=== PATIENT | male | born 1965 | race Caucasian/White ===

== ENCOUNTER 2018-02-10 18:04 | Emergency (ER) | payer MEDICAID ==
[~2018-02-10] VITALS: Ht 177.8 cm; Wt 66.3 kg
[2018-02-10] MEDS ORDERED: THIAMINE 100MG TABLET PO ONE (18:30)
[2018-02-10 18:41] LABS: BASOPHILS % (AUTO) 0 % (0-1); EOSINOPHILS # (AUTO) 0.03 x10^3/uL (0-0.4); EOSINOPHILS % (AUTO) 0 % (1-7); LYMPHOCYTES # (AUTO) 1.85 x10^3/uL (1-3.4); LYMPHOCYTES % (AUTO) 23 % (22-44); MD NO; MEAN CORPUSCULAR HEMOGLOBIN 33.6 pg (27.5-34.5); MEAN CORPUSCULAR HGB CONC 34.5 g/dL (33.2-36.2); MEAN CORPUSCULAR VOLUME 97.4 fL (81-97); MEAN PLATELET VOLUME 7.6 fL (7.4-10.4); MONOCYTES # (AUTO) 0.48 x10^3/uL (0.2-0.8); MONOCYTES % (AUTO) 6 % (2-9); NEUTROPHILS # (AUTO) 5.85 x10^3/uL (1.8-6.8); NEUTROPHILS % (AUTO) 71 % (42-75); PLATELET COUNT 306 x10^3/uL (130-400); RED CELL DISTRIBUTION WIDTH 15.2 % (9.4-14.8)
[2018-02-10 18:51] LABS: ALANINE AMINOTRANSFERASE 35 U/L (12-78); ALBUMIN 4.6 g/dL (3.4-5.0); ANION GAP 11 mmol/L (5-15); CALCIUM 8.7 mg/dL (8.5-10.1); CHLORIDE 100 mmol/L (98-107); CREATININE 1.16 mg/dL (0.7-1.3)
[2018-02-10 18:56] LABS: ALKALINE PHOSPHATASE 89 U/L (45-117); BILIRUBIN,TOTAL 1.2 mg/dL (0.2-1.0); TOTAL PROTEIN 8.6 g/dL (6.4-8.2)
[2018-02-10] MEDS ORDERED: ZIPRASIDONE 20 MG INJ IM ONE ×2 (19:00→19:17)
[2018-02-10] MEDS ORDERED: DIAZEPAM 5 MG TABLET PO ONE (19:00)
[2018-02-10] MEDS ORDERED: THIAMINE 100MG TABLET ONE (19:17)
[2018-02-10] MEDS ORDERED: DIAZEPAM 5 MG TABLET ONE (19:17)
[2018-02-11 00:50] VITALS: BP 116/55
== END 2018-02-11 00:52 | disposition home or self-care (01) ==
LOC: ED 23:59
DX: F10.220 Alcohol dependence with intoxication, uncomplicated (principal); E11.9 Type 2 diabetes mellitus without complications; F32.9 Major depressive disorder, single episode, unspecified; Z85.51 Personal history of malignant neoplasm of bladder
CPT/HCPCS: 36415; 80053; 80307; 85025; 96372; 99284; J3486

== ENCOUNTER 2018-10-22 19:07 | Emergency (ER) | payer MEDICAID ==
[~2018-10-22] VITALS: Ht 172.7 cm; Wt 70.0 kg
[2018-10-22] MEDS ORDERED: LORazepam 2 MG/ML, 1ML IM STA (19:15)
[2018-10-22] MEDS ORDERED: LORazepam 2 MG/ML, 1ML IVPush ONE (19:30)
[2018-10-22] MEDS ORDERED: THIAMINE 100 MG in SODIUM CHLORIDE 0.9% 50 ML IVPB ONE (19:30)
[2018-10-22] MEDS ORDERED: LIDOCAINE 2%,20 ML JEL.PF.APP MM ONE (19:30)
[2018-10-22] MEDS ORDERED: THIAMINE 100 MG/ML, 2ML ONE (19:32)
[2018-10-22] MEDS ORDERED: LORazepam 2 MG/ML, 1ML ONE (19:32)
[2018-10-22 19:34] LABS: BASOPHILS # (AUTO) 0.01 x10^3/uL (0-0.1); BASOPHILS % (AUTO) 0 % (0-1); EOSINOPHILS # (AUTO) 0.01 x10^3/uL (0-0.4); EOSINOPHILS % (AUTO) 0 % (1-7); LYMPHOCYTES # (AUTO) 0.67 x10^3/uL (1-3.4); LYMPHOCYTES % (AUTO) 5 % (22-44); MD NO; MEAN CORPUSCULAR HGB CONC 33.6 g/dL (33.2-36.2); MEAN PLATELET VOLUME 7.6 fL (7.4-10.4); MONOCYTES # (AUTO) 0.36 x10^3/uL (0.2-0.8); MONOCYTES % (AUTO) 3 % (2-9); NEUTROPHILS % (AUTO) 92 % (42-75); PLATELET COUNT 336 x10^3/uL (130-400); RED BLOOD COUNT 4.87 x10^6/uL (4.38-5.82); RED CELL DISTRIBUTION WIDTH 15.1 % (9.4-14.8)
--- NOTE | 2018-10-22 19:44 | NUR ---
IV started by Delonte Bond, pt tolerate with difficulty, to room with bladder scanner, pt states that he just voided "a lot", scan is 0ml. Unfortunately urine not collected. Medicated as per order
[2018-10-22 19:45] LABS: ALANINE AMINOTRANSFERASE 28 U/L (12-78); ALBUMIN 4.3 g/dL (3.4-5.0); ANION GAP 16 mmol/L (5-15); CALCIUM 9.7 mg/dL (8.5-10.1); CHLORIDE 91 mmol/L (98-107); CREATININE 1.47 mg/dL (0.7-1.3)
[2018-10-22 19:47] LABS: ALKALINE PHOSPHATASE 105 U/L (45-117); BILIRUBIN,TOTAL 1.7 mg/dL (0.2-1.0)
--- NOTE | 2018-10-22 19:47 | NUR ---
CIWA score 1
--- NOTE | 2018-10-22 20:22 | NUR ---
PT HAS REMOVED ALL MONITORS AND IS DRINKING OUT OF SINK. URINE WALKED TO LAB
[2018-10-22 20:30] LABS: CULTURE INDICATED? YES; MICROSCOPIC INDICATED
[2018-10-22 20:46] LABS: AMPHETAMINE SCREEN, URINE Negative (Negative); BARBITURATE SCREEN, URINE Negative (Negative); BENZODIAZEPINE SCREEN, URINE Negative (Negative); CANNABINOID SCREEN, URINE Negative (Negative); COCAINE SCREEN, URINE Negative (Negative); METHADONE SCREEN, URINE Negative (Negative); OPIATE SCREEN, URINE Negative (Negative)
[2018-10-22] MEDS ORDERED: CEFTRIAXONE PMX 1GM/50ML 50 ML IVPB ONE (21:00)
[2018-10-22] MEDS ORDERED: CEFTRIAXONE 1,000 MG IM ONE (21:00)
[2018-10-22] MEDS ORDERED: CEFTRIAXONE 1,000 MG ONE (21:01)
--- NOTE | 2018-10-22 21:21 | NUR ---
Assist RN: patient medicated. discharged with prescriptions and instruction. verbalized understanding.
[2018-10-22 21:22] VITALS: BP 119/78
== END 2018-10-22 21:25 | disposition home or self-care (01) ==
LOC: ED 21:05
DX: N39.0 Urinary tract infection, site not specified (principal); N28.9 Disorder of kidney and ureter, unspecified; F10.239 Alcohol dependence with withdrawal, unspecified; F17.210 Nicotine dependence, cigarettes, uncomplicated; Z85.51 Personal history of malignant neoplasm of bladder
CPT/HCPCS: 36415; 80053; 80307; 81001; 83690; 85025; 87086; 96365; 96372; 96375; 99283; J0696; J2060; J3411

== ENCOUNTER 2018-10-22 23:45 | Emergency (ER) | payer MEDICAID ==
[~2018-10-22] VITALS: Ht 177.8 cm; Wt 66.7 kg
[2018-10-22 23:49] VITALS: BP 136/85
[2018-10-23] MEDS ORDERED: ONDANSETRON ODT 8 MG PO ONE (01:00)
--- NOTE | 2018-10-23 01:40 | NUR ---
ATTEMPT TO CALL PT FROM LOBBY TO ROOM. PT NIL X1
--- NOTE | 2018-10-23 02:09 | NUR ---
called for labs, no answer
--- NOTE | 2018-10-23 02:36 | NUR ---
attempt to call pt to room from lobby. pt nil x 3
== END 2018-10-23 02:39 | disposition left against medical advice (07) ==
LOC: ED 10-23 02:30
DX: R11.10 Vomiting, unspecified (principal)
CPT/HCPCS: 99281

== ENCOUNTER 2019-11-25 19:48 | Emergency (ER) | payer MEDICAID ==
[~2019-11-25] VITALS: Ht 175.3 cm; Wt 72.7 kg
[2019-11-25] MEDS ORDERED: ONDANSETRON 2MG/ML, 2ML IVPush ONE (20:30)
[2019-11-25] MEDS ORDERED: SODIUM CHLORIDE FLUSH 10ML SYR IVF ONE (20:30)
[2019-11-25] MEDS ORDERED: SODIUM CHLORIDE 0.9% 1,000ML IVBOLUS ONE (20:30)
[2019-11-25] MEDS ORDERED: ONDANSETRON 2MG/ML, 2ML ONE (20:33)
[2019-11-25 20:44] LABS: ALANINE AMINOTRANSFERASE 33 U/L (12-78); ALBUMIN 4.1 g/dL (3.4-5.0); ANION GAP 8 mmol/L (5-15); CHLORIDE 101 mmol/L (98-107); CREATININE 1.14 mg/dL (0.7-1.3)
[2019-11-25 20:46] LABS: ALKALINE PHOSPHATASE 110 U/L (45-117); BILIRUBIN,TOTAL 1.3 mg/dL (0.2-1.0); TOTAL PROTEIN 8.2 g/dL (6.4-8.2)
--- NOTE | 2019-11-25 20:51 | NUR ---
TASK RN: LAB TO REDRAW CBC.
--- NOTE | 2019-11-25 21:14 | NUR ---
PT. RESTING ON GURNEY WITH EYES CLOSED. NO DISTRESS NOTED. EVEN, NON-LABORED RESPIRATIONS VISIBLE.
[2019-11-25 21:25] LABS: BASOPHILS # (AUTO) 0.07 x10^3/uL (0-0.1); BASOPHILS % (AUTO) 1 % (0-1); EOSINOPHILS # (AUTO) 0.06 x10^3/uL (0-0.4); EOSINOPHILS % (AUTO) 1 % (1-7); LYMPHOCYTES # (AUTO) 1.73 x10^3/uL (1-3.4); LYMPHOCYTES % (AUTO) 25 % (22-44); MD NO; MEAN CORPUSCULAR HEMOGLOBIN 32.1 pg (27.5-34.5); MEAN CORPUSCULAR HGB CONC 33.8 g/dL (33.2-36.2); MEAN PLATELET VOLUME 7.8 fL (7.4-10.4); MONOCYTES # (AUTO) 0.75 x10^3/uL (0.2-0.8); MONOCYTES % (AUTO) 11 % (2-9); NEUTROPHILS # (AUTO) 4.43 x10^3/uL (1.8-6.8); NEUTROPHILS % (AUTO) 63 % (42-75); PLATELET COUNT 285 x10^3/uL (130-400); RED BLOOD COUNT 4.68 x10^6/uL (4.38-5.82); RED CELL DISTRIBUTION WIDTH 15.6 % (9.4-14.8)
[2019-11-25 21:28] VITALS: BP 132/67
--- NOTE | 2019-11-25 21:28 | NUR ---
PT. SITTING UP IN CHANELLE CROSS ON HIS CELL PHONE. REQUESTING IV TO BE REMOVED AND "PUT IT ON THE OTHER ARM."
[2019-11-25] MEDS ORDERED: PROMETHAZINE 25 MG/ML, 1ML IM ONE (22:00)
--- NOTE | 2019-11-25 22:04 | NUR ---
UNABLE TO LOCATE PT. IN ROOM/OR ON UNIT AT THIS TIME. UPON [place] TO ED PT. DID AMBULATE WITH STEADY GAIT TO ROOM FROM [facility]. PA HAD BEEN IN TO DISCUSS D/C PLAN WITH PT. PRIOR TO ELOPEMENT. PT. LEFT WITHOUT D/C PAPERS.
== END 2019-11-25 22:09 | disposition home or self-care (01) ==
LOC: ED 21:38
DX: F10.129 Alcohol abuse with intoxication, unspecified (principal); R11.2 Nausea with vomiting, unspecified; Z85.51 Personal history of malignant neoplasm of bladder; Y90.9 Presence of alcohol in blood, level not specified
CPT/HCPCS: 36415; 70450; 80053; 80307; 83690; 85025; 96361; 96374; 99284; J2405; J7030

== ENCOUNTER 2019-11-26 02:55 | Emergency (ER) | payer MEDICAID ==
[~2019-11-26] VITALS: Ht 172.7 cm; Wt 72.5 kg
[2019-11-26] MEDS ORDERED: ONDANSETRON 2MG/ML, 2ML ONE (03:28)
[2019-11-26] MEDS ORDERED: SODIUM CHLORIDE 0.9% 1,000ML IVBOLUS ONE (03:30)
[2019-11-26] MEDS ORDERED: SODIUM CHLORIDE FLUSH 10ML SYR IVF ONE (03:30)
[2019-11-26] MEDS ORDERED: ONDANSETRON 2MG/ML, 2ML IVPush ONE (03:30)
[2019-11-26] MEDS ORDERED: LORazepam 2 MG/ML, 1ML ONE (03:35)
[2019-11-26 03:42] LABS: BASOPHILS # (AUTO) 0.02 x10^3/uL (0-0.1); BASOPHILS % (AUTO) 0 % (0-1); EOSINOPHILS # (AUTO) 0.02 x10^3/uL (0-0.4); EOSINOPHILS % (AUTO) 0 % (1-7); LYMPHOCYTES # (AUTO) 1.27 x10^3/uL (1-3.4); LYMPHOCYTES % (AUTO) 19 % (22-44); MD NO; MEAN CORPUSCULAR HEMOGLOBIN 31.9 pg (27.5-34.5); MEAN CORPUSCULAR HGB CONC 33.5 g/dL (33.2-36.2); MONOCYTES % (AUTO) 10 % (2-9); NEUTROPHILS # (AUTO) 4.82 x10^3/uL (1.8-6.8); NEUTROPHILS % (AUTO) 71 % (42-75); PLATELET COUNT 283 x10^3/uL (130-400); RED BLOOD COUNT 4.67 x10^6/uL (4.38-5.82); RED CELL DISTRIBUTION WIDTH 15.1 % (9.4-14.8)
[2019-11-26 03:45] LABS: ALANINE AMINOTRANSFERASE 30 U/L (12-78); ALBUMIN 3.6 g/dL (3.4-5.0); ANION GAP 11 mmol/L (5-15); CALCIUM 8.7 mg/dL (8.5-10.1); CHLORIDE 100 mmol/L (98-107)
[2019-11-26 03:48] LABS: ALKALINE PHOSPHATASE 92 U/L (45-117); BILIRUBIN,TOTAL 1.3 mg/dL (0.2-1.0); TOTAL PROTEIN 7.1 g/dL (6.4-8.2)
[2019-11-26] MEDS ORDERED: LORazepam 2 MG/ML, 1ML IVPush ONE (04:30)
[2019-11-26 04:35] VITALS: BP 122/78
--- NOTE | 2019-11-26 04:47 | NUR ---
PT RESTING IN BED, RESPIRATIONS EVEN AND UNLABORED. VITALS WNL. IV FLUIDS CONTINUE INFUSING. PT DENIES ANY NEEDS OR CONCERNS, CALL LIGHT IN REACH.
== END 2019-11-26 05:04 | disposition home or self-care (01) ==
LOC: ED 03:05
DX: F10.220 Alcohol dependence with intoxication, uncomplicated (principal); R11.2 Nausea with vomiting, unspecified; Z72.9 Problem related to lifestyle, unspecified; F17.210 Nicotine dependence, cigarettes, uncomplicated; Z85.51 Personal history of malignant neoplasm of bladder; Y90.0 Blood alcohol level of less than 20 mg/100 ml
CPT/HCPCS: 36415; 80053; 80307; 83690; 85025; 96361; 96374; 96375; 99284; 99406; J2060; J2405; J7030

== ENCOUNTER 2020-07-06 08:27 | Emergency (ER) | payer MEDICAID ==
[~2020-07-06] VITALS: Ht 175.3 cm; Wt 70.0 kg
--- NOTE | 2020-07-06 08:54 | NUR ---
MARY ANN ERICKSON. PT BIB [facility] FROM HOME. PT RELEASED FROM [facility] ER THIS AM FOR C/C DEPRESSION. PT STATES HE WENT BACK HOME AND DRANK A PINT OF ETOH. PT STATES CONTINUED DEPRESSION, HOWEVER CURRENTLY DENIES SI THOUGHTS. PT STATES HIS GIRLFRIEND IN [facility], WHICH HAS LEAD TO HIS DEPRESSION. PT PLACED IN SECURED ER ROOM, AND PLACED IN HOSPITAL GOWN ONLY. ALL PT BELONGINGS LOCKED FOR SAFETY. SITTER AT BEDSIDE. AT THIS TIME, PT IS CALM AND COOPERATIVE. REPORT TO LUIGI ERICKSON.
--- NOTE | 2020-07-06 09:11 | NUR ---
RECEIVED REPORT AND ASSUMED PT. CARE. PT. IS TEARFUL AND COOPERATIVE. SITTER REMAINS OUTSIDE OF THE PT.'S ROOM WITH THE ROOM SECURED AND THE GARAGE DOORS DOWN. PT. HAS BLANKETS FOR WARMTH AND A MEAL TRAY HAS BEEN ORDERED.
[2020-07-06 09:12] LABS: BASOPHILS % (AUTO) 1 % (0-1); EOSINOPHILS % (AUTO) 0 % (1-7); LYMPHOCYTES % (AUTO) 14 % (22-44); MEAN CORPUSCULAR HEMOGLOBIN 31.3 pg (27.5-34.5); MEAN CORPUSCULAR HGB CONC 33.4 g/dL (33.2-36.2); MEAN PLATELET VOLUME 7.6 fL (7.4-10.4); MONOCYTES % (AUTO) 7 % (2-9); NEUTROPHILS % (AUTO) 78 % (42-75); PLATELET COUNT 253 x10^3/uL (130-400); RED BLOOD COUNT 4.71 x10^6/uL (4.38-5.82); RED CELL DISTRIBUTION WIDTH 14.4 % (9.4-14.8)
--- NOTE | 2020-07-06 09:14 | NUR ---
2 BAGS OF BELONGINGS LABELED AND SECURED.
[2020-07-06 09:15] LABS: MD NO
[2020-07-06 09:21] LABS: ALBUMIN 3.2 g/dL (3.4-5.0); ANION GAP 11 mmol/L (5-15); CALCIUM 8.2 mg/dL (8.5-10.1); CHLORIDE 109 mmol/L (98-107)
[2020-07-06 09:29] LABS: ALANINE AMINOTRANSFERASE 27 U/L (12-78); ALKALINE PHOSPHATASE 98 U/L (45-117); BILIRUBIN,TOTAL 1.2 mg/dL (0.2-1.0); CREATININE 0.96 mg/dL (0.7-1.3); TOTAL PROTEIN 7.1 g/dL (6.4-8.2)
[2020-07-06 09:33] LABS: SALICYLATE LEVEL < 1.7 mg/dL (2.8-20.0)
--- NOTE | 2020-07-06 09:51 | NUR ---
LABS WERE DRAWN AND SENT. PT. WAS MEDICATED ORDERED.
--- NOTE | 2020-07-06 11:56 | NUR ---
REPORT GIVEN TO ZARINA ERICKSON.
--- NOTE | 2020-07-06 12:21 | NUR ---
pt in bed. resting, room secure doors rolled down and belongings in locker
[2020-07-06 13:00] LABS: AMPHETAMINE SCREEN, URINE Negative (Negative); BARBITURATE SCREEN, URINE Negative (Negative); BENZODIAZEPINE SCREEN, URINE Negative (Negative); CANNABINOID SCREEN, URINE Negative (Negative); COCAINE SCREEN, URINE Negative (Negative); METHADONE SCREEN, URINE Negative (Negative); OPIATE SCREEN, URINE Negative (Negative)
--- NOTE | 2020-07-06 15:24 | NUR ---
PRECEPTOR NOTE. IN ROOM PT IS ANXIOUS. PT STATES HE IS HAVING AN ANXIETY ATTACK. PT STATES HIS GIRLFRIEND PAST AWAY FROM ALCOHOL USE. PT STATED I NEED SOME MORPHINE FOR MY ANXIETY. PT EDUCATED THAT IS NOT THE USE OF THAT MEDICATION AND PT STATES HE HAD CANCER AND IS IN PAIN THEN. PT ASKED TO CLARIFY IF HE IS REQUESTING PAIN MEDICATION OR ANXIETY MEDICATION. PT STATES HE JUST NEEDS SOME MEDICATION TO HELP HIM FEEL BETTER. PT IS UNABLE TO SPECIFY. VITAL SIGNS TAKEN. WATER PROVIDED AND BREATHING TECHNIQUES TAUGHT. PROVIDER MADE AWARE.
--- NOTE | 2020-07-06 16:57 | NUR ---
psych pad machine feeder at bedside
[2020-07-06] MEDS ORDERED: SERTRALINE 50MG TABLET ONE (17:11)
[2020-07-06] MEDS ORDERED: CHLORDIAZEPOXIDE 10 MG CAPSULE ONE (17:11)
--- NOTE | 2020-07-06 17:20 | NUR ---
BREAK RN: [place] DIEHL TO BEDSIDE. MEDICATIONS GIVEN PER PROVIDER. PT GIVEN A WARM BLANKET. VS STABLE. WILL CONTINUE TO MONITOR WHILE PRIMARY RN IS ON BREAK.
[2020-07-06 17:21] VITALS: BP 97/57
[2020-07-06] MEDS ORDERED: SERTRALINE 50MG TABLET PO ONE (17:30)
[2020-07-06] MEDS ORDERED: CHLORDIAZEPOXIDE 10 MG CAPSULE PO ONE (17:30)
--- NOTE | 2020-07-06 17:41 | NUR ---
REPORT GIVEN TO DRE SRINIVASAN
--- NOTE | 2020-07-06 18:05 | NUR ---
PT CLEARED BY YUSRA. PT DC HOME WITH RX AND TAXI VOUCHER. GIVEN COUMINITY RESIOURSES . IF S&S WORSEN RETURN TO ER
== END 2020-07-06 18:08 | disposition home or self-care (01) ==
LOC: ED 08:51
DX: F33.9 Major depressive disorder, recurrent, unspecified (principal); R45.851 Suicidal ideations; F10.120 Alcohol abuse with intoxication, uncomplicated; Y90.0 Blood alcohol level of less than 20 mg/100 ml
CPT/HCPCS: 36415; 80053; 80299; 80307; 80320; 80329; 84443; 85025; 99285; G0480

== ENCOUNTER 2020-08-01 21:21 | Emergency (ER) | payer MEDICAID ==
[~2020-08-01] VITALS: Ht 172.7 cm; Wt 75.0 kg
--- NOTE | 2020-08-01 21:39 | NUR ---
VALENTINE FROM HOME FOR ALCOHOL INTOXICATION, PT REPORTS HE HAS BEEN DRINKING A LOT OF WISKEY SINCE GIRLFRIEND RECENTLY, AND HE MIGHT HAVE TAKEN MORE THAN ONE ZOLOFT PILL. PT IS VISIBLY INTOXICATED, CRYING FOR GIRLFRIEND. PLACED ON VITALS MONITORS, SIDE RAILS LOCKED FOR FALL PRECAUTIONS.
--- NOTE | 2020-08-01 21:49 | NUR ---
PT ATTEMPTED TO URINATE BUT COULD NOT. WILL TRY AGAIN LATER.
[2020-08-01] MEDS ORDERED: ONDANSETRON ODT 4 MG PO ONE (22:00)
[2020-08-01] MEDS ORDERED: ONDANSETRON ODT 4 MG ONE (22:09)
[2020-08-01 22:16] LABS: BASOPHILS % (AUTO) 1 % (0-1); EOSINOPHILS % (AUTO) 1 % (1-7); LYMPHOCYTES % (AUTO) 16 % (22-44); MEAN CORPUSCULAR HEMOGLOBIN 31.3 pg (27.5-34.5); MEAN CORPUSCULAR HGB CONC 34.5 g/dL (33.2-36.2); MEAN PLATELET VOLUME 7.2 fL (7.4-10.4); MONOCYTES % (AUTO) 8 % (2-9); NEUTROPHILS % (AUTO) 75 % (42-75); PLATELET COUNT 297 x10^3/uL (130-400); RED BLOOD COUNT 4.96 x10^6/uL (4.38-5.82)
[2020-08-01 22:18] LABS: MD NO
[2020-08-01 22:28] LABS: ALANINE AMINOTRANSFERASE 28 U/L (12-78); ALBUMIN 4.2 g/dL (3.4-5.0); ANION GAP 9 mmol/L (5-15); CHLORIDE 100 mmol/L (98-107); CREATININE 1.03 mg/dL (0.7-1.3); SALICYLATE LEVEL < 1.7 mg/dL (2.8-20.0)
[2020-08-01 22:30] LABS: ALKALINE PHOSPHATASE 104 U/L (45-117); BILIRUBIN,TOTAL 0.7 mg/dL (0.2-1.0); TOTAL PROTEIN 7.6 g/dL (6.4-8.2)
--- NOTE | 2020-08-01 22:31 | NUR ---
PT IS SLEEPING IN BED. BREATHING IS EVEN AND UNLABORED. SITTER OUTSIDE ROOM FOR SAFETY WATCH.
--- NOTE | 2020-08-01 22:49 | NUR ---
PT IS SLEEPING IN BED. AROUSABLE TO VERBAL COMMANDS. VSS. DENIES SI OR HI. STATES HE CANNOT PEE AND DOES NOT WANT TO PEE. REPORTS ONLY TAKING 1 ZOLOFT PILL BECAUSE HE IS OUT OF HIS PRESCRIPTION.
[2020-08-01 22:52] VITALS: BP 117/70
--- NOTE | 2020-08-01 22:59 | NUR ---
GAVE REPORT TO CELINE ERICKSON
--- NOTE | 2020-08-01 23:14 | NUR ---
PT CONTINUING TO REFUSE TO PROVIDE URINE SAMPLE.
[2020-08-02 00:58] LABS: AMPHETAMINE SCREEN, URINE Negative (Negative); BARBITURATE SCREEN, URINE Negative (Negative); BENZODIAZEPINE SCREEN, URINE Negative (Negative); CANNABINOID SCREEN, URINE Negative (Negative); COCAINE SCREEN, URINE Negative (Negative); METHADONE SCREEN, URINE Negative (Negative); OPIATE SCREEN, URINE Negative (Negative)
== END 2020-08-02 02:11 | disposition left against medical advice (07) ==
LOC: ED 21:40
DX: F10.129 Alcohol abuse with intoxication, unspecified (principal); R45.851 Suicidal ideations; F32.1 Major depressive disorder, single episode, moderate; Z72.9 Problem related to lifestyle, unspecified; Z85.9 Personal history of malignant neoplasm, unspecified; Y90.0 Blood alcohol level of less than 20 mg/100 ml
CPT/HCPCS: 36415; 80053; 80299; 80307; 80320; 80329; 85025; 99283; Q0162; G0480